=== PATIENT | male | born 2000 | race Caucasian/White ===

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

== ENCOUNTER → 2020-12-27 | Outpatient (CLI) | payer BC ==
[~2020-12-27] MED LIST: IOHEXOL 240 MG/ML 50ML VIAL. ONE; IOHEXOL 240 MG/ML 50ML VIAL. PO ONE; IOHEXOL 300 MG/ML 75 ML VIAL. IV ONE
--- NOTE | 2020-12-27 11:14 | RAD ---
EXAMINATION: CT ABDOMEN+PELVIS W CLINICAL HISTORY: Intermittent abdominal pain x1 week TECHNIQUE: CT of the abdomen and pelvis was performed using standard technique, scanning from just ab ove the dome of the diaphragm to the symphysis pubis following administration of intravenous contrast . CT Dose Reduction Employed: One or more of the following individualized dose reduction techniques wer e utilized for this examination: 1. Automated exposure control 2. Adjustment of the mA and/or kV ac cording to patient size 3. Use of iterative reconstruction technique. COMPARISON: None FINDINGS: Visualized heart and lungs unremarkable. Liver, gallbladder, pancreas, spleen, adrenal glands, and kidneys unremarkable. Minimally filled urinary bladder suboptimally evaluated. No bowel dilation or definite wall thickening. Appendix within normal limits. Multiple prominent lymph nodes in the right lower quadrant measuring up to 6 mm in short axis, nonspe cific but can be seen with mesenteric adenitis. No abdominal aortic or iliac artery aneurysm. 1.6 cm lytic lesion in the inferior L4 vertebral body, nonspecific. IMPRESSION: No definitive evidence of acute abdominopelvic abnormality. Prominent right lower quadrant lymph nodes, nonspecific but can be seen with mesenteric adenitis. Cor relate clinically. Electronically signed by: Ronnie Keith DO (12/27/2020 11:11 AM) [facility]
== END ==
LOC: RAD 09:34
PROVIDERS: ATTEND Nurse Practitioner Family
DX: I89.8 Other specified noninfective disorders of lymphatic vessels and lymph nodes (principal); G95.89 Other specified diseases of spinal cord; R10.84 Generalized abdominal pain
CPT/HCPCS: 74177; Q9967